=== PATIENT | male | born 1990 | race Hispanic/Latino ===

== ENCOUNTER 2020-02-09 15:40 | Emergency (ER) | payer BC ==
[~2020-02-09] VITALS: Ht 167.6 cm; Wt 69.0 kg
[2020-02-09 17:57] LABS: HEMOGLOBIN 14.3 g/dl (14.0-18.0); IMMATURE GRANULOCYTES 0.4 % (0.0-5.0); MEAN CORPUSCULAR HGB 29.6 pG CALC (26.0-32.0); NEUT# 11.85 thou/uL (1.82-7.42); RED BLOOD COUNT 4.83 mill/uL (4.70-6.10); RED CELL DISTRI WIDTH 12.3 % (11.5-15.5)
[2020-02-09 18:07] LABS: ALBUMIN 5.3 g/dL (3.2-5.0); ALKALINE PHOSPHATASE 85 u/l (38-126); ANION GAP 15 (6-22 (CALC)); BILIRUBIN, TOTAL 0.7 mg/dL (0.0-1.4); BUN 17 mg/dL (9-20); BUN/CREATININE RATIO 15 (12-20 (CALC)); CARBON DIOXIDE 24 mmol/l (22-30); CHLORIDE 105 mmol/l (95-108); CREATININE 1.1 mg/dL (0.7-1.3); GFR > 60 ML/MIN (>=60 (CALC)); GFR FOR AFR.AMER. > 60 ML/MIN (>=60 (CALC)); POTASSIUM 3.9 mmol/l (3.5-5.1); SGOT/AST 30 u/l (17-59); SODIUM 140 mmol/l (137-146); TOTAL PROTEIN 8.5 g/dL (6.3-8.2)
[2020-02-09 18:39] LABS: AMYLASE 69 u/l (30-110); LIPASE 61 u/l (23-300)
[2020-02-09] MEDS ORDERED: TAMSULOSIN0.4 MG PO (19:25)
[2020-02-09] MEDS ORDERED: TORADOL PO (19:25)
[2020-02-09 22:05] VITALS: BP 122/68
== END 2020-02-09 22:05 | disposition home or self-care (01) | DRG 694 ==
LOC: ED 15:40
PROVIDERS: Emergency Medicine
DX: N13.2 Hydronephrosis with renal and ureteral calculous obstruction (principal)

== ENCOUNTER 2022-10-05 17:42 | Emergency (ER) | payer SELFPAY ==
[~2022-10-05] VITALS: Ht 167.6 cm; Wt 72.7 kg
[~2022-10-05 17:42] MED LIST: TAMSULOSIN0.4 MG PO; TORADOL PO
[2022-10-05 18:47] LABS: BASO% 0.7 % (0-3); EOS% 1.3 % (0-8); HEMATOCRIT 41.4 % (39.0-50.0); HEMOGLOBIN 13.7 g/dl (14.0-18.0); IMMATURE GRANULOCYTES 0.3 % (0.0-5.0); LYMPH% 17.1 % (15-41); MEAN CELL VOLUME 88.8 fL CALC (80.0-100.0); MEAN CORPUSCULAR HGB 29.4 pG CALC (26.0-32.0); MEAN CORPUSCULAR HGB CONC 33.1 g/dL CAL (32.0-36.0); MONO% 5.8 % (2-13); NEUT# 7.84 thou/uL (1.82-7.42); NEUT% 74.8 % (42-76); RED BLOOD COUNT 4.66 mill/uL (4.70-6.10); RED CELL DISTRI WIDTH 12.5 % (11.5-15.5)
[2022-10-05 18:54] LABS: ALKALINE PHOSPHATASE 97 u/l (38-126); ANION GAP 12 (6-22 (CALC)); BUN 21 mg/dL (9-20); BUN/CREATININE RATIO 23 (12-20 (CALC)); CARBON DIOXIDE 26 mmol/l (22-30); CHLORIDE 104 mmol/l (95-108); CREATININE 0.9 mg/dL (0.7-1.3); GFR FOR AFR.AMER. > 60 ML/MIN (>=60 (CALC)); GFR OTHER RACES > 60 ML/MIN (>=60 (CALC)); LIPASE 77 u/l (23-300); POTASSIUM 3.6 mmol/l (3.5-5.1); SGOT/AST 35 u/l (17-59); SODIUM 138 mmol/l (137-146); TOTAL PROTEIN 7.8 g/dL (6.3-8.2)
[2022-10-05 19:08] LABS: BILIRUBIN, TOTAL 0.4 mg/dL (0.2-1.3)
[2022-10-05] MEDS ORDERED: LORTAB 7.57.5 MG PO (20:34)
[2022-10-05] MEDS ORDERED: TAMSULOSIN0.4 MG PO (20:34)
[2022-10-05] MEDS ORDERED: TORADOL PO (20:34)
[2022-10-05 20:42] LABS: URINE BILIRUBIN - DIPSTICK NEGATIVE (NEGATIVE); URINE BLOOD DIPSTICK LARGE (NEGATIVE); URINE COLOR YELLOW; URINE GLUCOSE - DIPSTICK NEGATIVE (NEGATIVE); URINE KETONE NEGATIVE (NEGATIVE); URINE LEUK ESTERASE NEGATIVE (NEGATIVE); URINE PH 5.5 (4.5-8.0); URINE PROTEIN - DIPSTICK TRACE mg/dL (NEG-TRACE); URINE SPECIFIC GRAVITY >=1.030; URINE UROBILINOGEN - DIPSTICK 0.2 E.U./dL (0.2)
[2022-10-05 20:44] LABS: URINE NITRITE - DIPSTICK NEGATIVE (Negative)
[2022-10-05 21:33] VITALS: BP 131/85
== END 2022-10-05 21:46 | disposition home or self-care (01) | DRG 694 ==
LOC: ED 17:42
PROVIDERS: Nurse Practitioner
DX: N20.0 Calculus of kidney (principal)

== ENCOUNTER 2022-10-22 17:40 | Emergency (ER) | payer OTHER ==
[~2022-10-22] VITALS: Ht 167.6 cm; Wt 68.0 kg
[~2022-10-22 17:40] MED LIST changes: +LORTAB 7.57.5 MG PO
[2022-10-22] MEDS ORDERED: NAPROXEN500 MG PO (19:55)
[2022-10-22 20:03] VITALS: BP 145/84
== END 2022-10-22 20:29 | disposition home or self-care (01) | DRG 563 ==
LOC: ED 17:40
PROC: 2W3 Placement, Anatomical Regions, Immobilization (ICD-10-PCS; principal; 2022-10-22)
DX: S92.001A Unspecified fracture of right calcaneus, initial encounter for closed fracture (principal); W19.XXXA Unspecified fall, initial encounter